=== PATIENT | female | born 1975 | race Caucasian/White ===

== ENCOUNTER 2016-06-02 10:15 | Emergency (ER) | payer OTHER ==
--- NOTE | ~2016-06-02 | ER ---
PATIENT'S NAME: NEWTON [facility] AGE: 40 Y [address] ROOM: [place] [address] LOCATION: [facility] ADMIT DATE: 06/02/2016 ER/Outpatient Report DISCHARGE DATE: 06/02/2016 FAMILY PHYSICIAN: Physician, Unknown ATTENDING PHYSICIAN: Coleman Kruse Time of Arrival: 1020 hours. Time of Evaluation/Exam: 1030 hours. CHIEF COMPLAINT: Pain with urination. HISTORY OF PRESENT ILLNESS: The patient states she has a history of getting UTIs on a yearly basis. She started having some general discomfort on Friday and Friday. By Friday night, it was worse. On Friday, she did start taking some Bactrim that she had at home. The Bactrim was dated 09/20/2013. She took it as prescribed on Friday, , Friday, and Friday morning, she states it is just not helping. Continues to have quite a bit of pain and discomfort. She has been nauseated, but has not vomited. States she has had some dry heaves. Denies any fever or chills. Has not had any diarrhea. Last bowel movement was 2 days ago which is normal for her, she states. ALLERGIES: INSENSITIVE TO AUGMENTIN. MEDICATIONS: On her chart and reviewed by me. PAST MEDICAL HISTORY: 1. Frequent UTIs. Last menstrual period: states she just finished her period a week ago. SOCIAL HISTORY: She denies the use of tobacco, drugs, or alcohol. REVIEW OF SYSTEMS: All negative other than those mentioned in the HPI. PHYSICAL EXAMINATION: VITAL SIGNS: She weighed 54.3 kg. Blood pressure is 116/58; pulse of 100; respirations 16; temperature of 98.3, tympanic; and O2 saturation is 92% on room air. GENERAL APPEARANCE: She is awake, alert, and oriented x4. SKIN: [place], warm, and dry. PATIENT'S NAME: NEWTON DEL REAL [facility] AGE: 40 Y [address] ROOM: [place] [address] LOCATION: [facility] ADMIT DATE: 06/02/2016 ER/Outpatient Report DISCHARGE DATE: 06/02/2016 FAMILY PHYSICIAN: Physician, Unknown ATTENDING PHYSICIAN: Coleman Kruse RESPIRATORY: Respirations are even and nonlabored. Lung sounds are clear throughout. HEART: Regular rate and rhythm. ABDOMEN: Soft and nondistended. Bowel sounds are present. She has generalized discomfort in the lower abdominal region. Negative CVA tenderness. EMERGENCY DEPARTMENT COURSE: Clean-catch UA was obtained. It shows positive leukocytes, nitrites, positive ketones, has 20-50 white blood cells, and moderate bacteria. The patient was given Zofran 4 mg sublingual for the nausea. She reported that it did help calm down her stomach. She was then given [place] 5/325 tablets x1 for discomfort. IMPRESSION: Urinary tract infection. PLAN: Home, rest, and fluids. Prescription was written for Levaquin 500 mg daily for 7 days and Zofran 4 mg p.o. p.r.n. nausea. She is to follow up with her primary provider in the next 2 to 3 days or return to the ER if symptoms worsen. Urine will be cultured. The patient is aware of that. ZELDA ARROYO APRN FOR [facility]/modl /[id number] d: 06/02/16 1519 t: 06/04/16 1829, OUTPATIENT REPORT
[2016-06-02 10:47] LABS: BLOOD URINE 25 /UL (NEGATIVE); COLOR URINE YELLOW (YELLOW); GLUCOSE URINE NEGATIVE (NEGATIVE); KETONE URINE 50 mg/dL (NEGATIVE); LEUKOCYTES URINE 25 /UL (NEGATIVE); NITRITE URINE POSITIVE (NEGATIVE); PROTEIN URINE 15 mg/dL (NEGATIVE); SPEC GRAVITY URINE 1.025 (1.003-1.035); TURBIDITY URINE CLEAR (CLEAR); UROBILINOGEN URINE 4 mg/dL (NORMAL)
[2016-06-02 10:57] LABS: AMORPHOUS URINE 1+ (NEGATIVE); BACTERIA URINE MODERATE (NEGATIVE); CRYSTALS URINE CALCIUM OXALATE (NEGATIVE); MUCUS URINE 1+ (NEGATIVE); RBC URINE 20-50 #/HPF (NEGATIVE); WBC URINE 20-50 #/HPF (NEGATIVE)
== END 2016-06-02 11:23 | disposition disaster alternative care site (69) ==
LOC: GMED 10:15
PROVIDERS: Nurse Practitioner Family
DX: N39.0 Urinary tract infection, site not specified (principal); Z88.1 Allergy status to other antibiotic agents

== ENCOUNTER → 2016-08-02 | Outpatient (CLI) | payer OTHER | END | disposition disaster alternative care site (69) | LOC: GBCOE 11:44 | DX: Z12.31 Encounter for screening mammogram for malignant neoplasm of breast (principal); Z98.82 Breast implant status | CPT/HCPCS: G0202 ==